=== PATIENT | female | born 1925 | race Caucasian/White ===

== ENCOUNTER 2016-10-02 18:44 | Emergency (ER) | payer OTHER, BC ==
--- NOTE | 2016-10-02 19:42 | EDPHY ---
H & P Time Seen by Provider: 10/02/16 19:30 HPI/ROS: CHIEF COMPLAINT: Hypertension. HISTORY OF PRESENT ILLNESS: The patient is an 89-year-old female with a history of hypertension. She presents after measuring her blood pressure high (169/95) at a drug store earlier today. She has been compliant with her Metoprolol. She feels fine and has no apparent symptoms from this. BP on presentation 167/100. She denies chest pain, shortness of breath, peripheral edema, or other complaints. REVIEW OF SYSTEMS: A complete 10-point review of systems was performed and is negative except for those items mentioned in the HPI. Past Medical/Surgical History: Hypothyroidism, TIA, Hypertension, ulcer, osteoporosis, cervical fusion. Social History: Former smoker. Smoking Status: Former smoker Physical Exam: General Appearance: Alert, no distress Eyes: Pupils equal and round, no conjunctival pallor or injection ENT, Mouth: Mucous membranes moist Neck: Normal inspection Respiratory: Lungs are clear to auscultation Cardiovascular: Regular rate and rhythm Gastrointestinal: Abdomen is soft and non-tender Neurological: A&O, nonfocal, normal gait Skin: Warm and dry, no rash Extremities: Nontender, no pedal edema Psychiatric: Mood and affect normal Constitutional: Initial Vital Signs Temperature (C) 36.7 C 10/02/16 18:51 Heart Rate 65 10/02/16 18:51 Respiratory Rate 18 10/02/16 18:51 Blood Pressure 167/100 H 10/02/16 18:51 O2 Sat (%) 96 10/02/16 18:51 O2 Delivery Mode Room Air Allergies/Adverse Reactions: No Known Allergies Allergy (Verified 10/02/16 18:54) Home Medications: Medication Instructions Recorded Apixaban [Eliquis] 2.5 mg PO BID 04/14/16 Metoprolol Tartrate 25 mg PO BID 04/14/16 Levothyroxine [Synthroid 25 mcg 25 mcg PO DAILY AT 6AM #30 tab 04/16/16 (*)] Medical Decision Making ED Course/Re-evaluation: This patient presents with elevated blood pressure. No evidence hypertensive urgency or emergency. 25mg PO Metoprolol administered for hypertension. She will follow up with her implementation architect tomorrow for consideration of a change in her usual blood pressure medications. Differential Diagnosis: Includes though is not limited to intracranial hemorrhage, acute coronary syndrome, acute renal insufficiency. Departure - Departure Disposition: Home, Routine, Self-Care Clinical Impression: Hypertension Qualifiers: Hypertension type: essential hypertension Qualified Code(s): I10 - Essential ( primary) hypertension Condition: Good Instructions: Hypertension (ED) Additional Instructions: Call Dr. Aldridge tomorrow morning to set up a reevaluation appointment. Return to the emergency department if you experience any serious worsening of condition. Referrals: Julia Edwards MD [Primary Care Provider] - As per Instructions Jossue Aldridge MD [Medical Doctor] - As per Instructions Report Scribed for: Marcia Tai Report Scribed by: Kevin Patton Date of Report: 10/02/16 Time of Report: 19:46 Physician Review and Approval Statement: 10/02/16 19:46 Portions of this note were transcribed by a medical lab technologist. I personally performed a history, physical exam, medical decision making, and confirmed accuracy of information the transcribed note.
[2016-10-02] MEDS ORDERED: METOPROLOL TARTRATE 25 MG TAB PO ONE (20:37)
[2016-10-02 20:46] VITALS: BP 170/99; PULSE 88; RESP 14; TEMP 98.4; O2SAT 94
== END 2016-10-02 20:45 | disposition home or self-care (01) ==
DX: I10 Essential (primary) hypertension (principal); Z86.73 Personal history of transient ischemic attack (TIA), and cerebral infarction without residual deficits; Z87.891 Personal history of nicotine dependence

== ENCOUNTER → 2017-05-22 | Outpatient (CLI) | payer OTHER, BC | LOC: BMCIMAGING 09:35 | PROVIDERS: ATTEND Internal Medicine | DX: M79.641 Pain in right hand (principal); M79.642 Pain in left hand ==